=== PATIENT | female | born 2000 | race Caucasian/White ===

== ENCOUNTER 2022-07-18 16:27 | Emergency (ER) | payer OTHER, SELFPAY ==
[2022-07-18 16:56] VITALS: BP 120/82; PULSE 101; RESP 18; TEMP 36.6; O2SAT 100; BMI 27.8
--- NOTE | 2022-07-18 16:58 | ED.DENTAL ---
HPI - Dental/Oral General Chief complaint: Dental/Oral Stated complaint: R tooth pain Time Seen by Provider: 07/18/22 16:57 Source: patient Mode of arrival: ambulatory Limitations: no limitations History of Present Illness HPI Narrative: 22 yo female presents to the ER for evaluation of severe right upper molar pain that started 3-4 days ago. She states she feels like the tooth is cracked or has a hole in it. The pain radiates up into the right side of her face to her eye. No facial swelling. Pain is worse when eating hot and cold foods. She has an appointment with her dentist next week. MD Complaint: tooth pain Location: Tooth # (1) Onset (ago): day(s) (4) Duration: constant Severity: severe Severity scale (1-10): 10 Relieving factors: nothing Exacerbating factors: chewing, cold and heat Associated symptoms: ear pain Treatment prior to arrival: none Related Data Previous Rx's Medication Instructions Recorded clindamycin HCl 300 mg capsule 300 mg PO Q6H 7 days #28 caps 07/18/22 ibuprofen 600 mg tablet 600 mg PO Q8H PRN fever or pain 07/18/22 #20 tabs tramadol 50 mg tablet 50 mg PO Q6H PRN severe pain 07/18/22 (scale score 7-10) #10 tabs Allergies Allergy/AdvReac Type Severity Reaction Status Date / Time Penicillins Allergy Severe Anaphylaxis Verified 07/18/22 17:00 Review of Systems Review of Systems: Yes all other systems are reviewed and are negative [facility] Social History Social History Advance Directives: No Advance Directives Information Provided: No Physical Exam Vital Signs: Vital Signs: Last Vital Signs Temp 98 F 07/18/22 16:56 Pulse 101 H 07/18/22 16:56 Resp 18 07/18/22 16:56 BP 120/82 07/18/22 16:56 Pulse Ox 100 07/18/22 16:56 O2 Del Method Room Air 07/18/22 16:56 BMI result Body Mass Index 27.8 Appearance: Alert. Oriented X3. No acute distress. HEENT: normal inspection. face is symmetrical. tooth #1 with tenderness, dental dimitrios is visible. no associated gingival swelling or fluctuance. no trismus. normal TMs bilaterally CVS: Normal heart rate and rhythm. Pulses normal. Respiratory: No respiratory distress. Skin: Skin warm and dry. Normal skin color. Normal skin turgor. No rashes. Extremities: normal inspection x4, normal ROM Neuro: Oriented X 3. No motor deficit. No sensory deficit. Medical Decision Making Medical Decision Making MDM Narrative: 22 yo female presenting with dental pain x3-4 days. No evidence of abscess but there may be exposed root with +dimitrios visible. will start on empiric abx until she can be seeen by her dentist early next week. will add pain control. stable for d/c home. Differential Diagnosis Differential Diagnoses: The differential diagnosis associated with the presentation includes toothache, dental dimitrios, dental abscess, exposed root Prescription Management I considered prescription management with: Pain Medication and Antibiotic Critical Care Time Critical Care Time Critical Care Time: No Discharge Plan Discharge Clinical Impression: Toothache Patient Disposition: Home, Self-Care Instructions: Toothache (ED) Additional Instructions: Follow up with your dentist as scheduled next week Avoid very hot and very cold foods Take all of the prescribed medications as directed If you develop new or worsening symptoms call 911 or come back to the ER for further evaluation. Prescriptions: New clindamycin HCl 300 mg capsule 300 mg PO Q6H 7 Days Qty: 28 0RF ibuprofen 600 mg tablet 600 mg PO Q8H PRN (Reason: fever or pain) Qty: 20 0RF tramadol 50 mg tablet 50 mg PO Q6H PRN (Reason: severe pain (scale score 7-10)) Qty: 10 0RF Interventions: ED Discharge Assessment Last Done: 07/18/22 17:13 Discharge Date/Time: 07/18/22 17:13
== END 2022-07-18 17:13 | disposition home or self-care (01) ==
LOC: HO.ED 17:10
PROVIDERS: Emergency Provider Emergency Medicine
DX: K08.89 Other specified disorders of teeth and supporting structures (principal); K02.9 Dental caries, unspecified
CPT/HCPCS: 99282; 99283